=== PATIENT | male | born 1970 | race Caucasian/White ===

== ENCOUNTER 2016-05-21 16:41 | Inpatient (IN) | payer MEDICARE, MEDICAID ==
[~2016-05-21] VITALS: Ht 170.2 cm; Wt 88.1 kg
[~2016-05-21 16:41] MED LIST: OLAN10TA20 PO; OLAN10TA3 PO; VALP5L PO
[2016-05-21] MEDS ORDERED: ZOLPIDEM TARTRATE 10 MG TABLET PO PRN (17:30)
[2016-05-21] MEDS ORDERED: LORazepam 2 MG TABLET PO PRN (17:30)
[2016-05-21 17:38] VITALS: BP 111/65
[2016-05-21 18:30] VITALS: BP 131/50
[2016-05-22 07:46] LABS: BASOPHILS % (AUTO) 0.7 % (0.0-2.0); EOSINOPHILS % (AUTO) 3.7 % (1.0-6.0); HEMATOCRIT 41.3 % (41-53); HEMOGLOBIN 13.8 g/dL (13.5-17.5); LYMPHOCYTES # (AUTO) 2.3 K/uL (1.0-4.8); LYMPHOCYTES % (AUTO) 41.6 % (22.0-44.0); MEAN CORPUSCULAR HEMOGLOBIN 29.6 pg (26.0-34.0); MEAN CORPUSCULAR HGB CONC 33.4 G/dL (31.0-37.0); MEAN CORPUSCULAR VOLUME 89 fL (80-100); MONOCYTES # (AUTO) 0.5 K/uL (0.1-1.0); MONOCYTES % (AUTO) 8.2 % (2.0-9.0); NEUTROPHILS # (AUTO) 2.6 K/uL (1.8-7.7); NEUTROPHILS % (AUTO) 45.8 % (40.0-70.0); PLATELET COUNT (AUTO) 214 K/uL (150-450); RED BLOOD CELL COUNT(AUTO) 4.66 MIL/uL (4.50-5.90); RED CELL DISTRIBUTION WIDTH 12.7 % (11.5-14.5); WHITE BLOOD COUNT (AUTO) 5.6 K/uL (4.5-11.0)
[2016-05-22 08:02] LABS: HEMOGLOBIN A1C 5.1 % (4.5-6.2)
[2016-05-22 08:14] LABS: ALANINE AMINOTRANSFERASE 23 U/L (12-78); ALBUMIN 3.5 g/dL (3.4-5.0); ANION GAP 6 mmol/L (8-16); ASPARTATE AMINOTRANSFERASE 27 U/L (15-37); BILIRUBIN,TOTAL 0.4 mg/dL (0.1-1.0); CALCIUM, TOTAL 8.7 mg/dL (8.8-10.5); CARBON DIOXIDE 27 mmol/L (22-29); CHLORIDE 106 mmol/L (98-107); CREATININE 0.77 mg/dL (0.60-1.30); GLOMERULAR FILTR. RATE CALC > 60 mL/min (>60); POTASSIUM 4.2 mmol/L (3.5-5.1); SODIUM SERUM 139 mmol/L (136-145); THYROID STIMULATING HORMONE 1.17 uIU/mL (0.36-3.74); UREA NITROGEN, BLOOD 20 mg/dL (7-18)
[2016-05-22 08:19] VITALS: BP 118/74
[2016-05-22 16:30] VITALS: BP 108/65
[2016-05-22] MEDS: VALPROIC ACID 250 MG CAPSULE PO SCH (20:52)
[2016-05-22] MEDS: OLANZapine 10 MG TABLET PO SCH (21:11)
[2016-05-23 16:26] VITALS: BP 101/64
[2016-05-23] MEDS: VALPROIC ACID 250 MG CAPSULE PO SCH (20:27)
[2016-05-23] MEDS: OLANZapine 10 MG TABLET PO SCH (20:27)
[2016-05-24 08:05] VITALS: BP 105/57
[2016-05-24 09:24] LABS: APPEARANCE,URINE CLEAR (CLEAR); GLUCOSE, URINE (UA) NEGATIVE (NEGATIVE); KETONES,URINE NEGATIVE (NEGATIVE); LEUKOCYTE ESTERASE ,URINE NEGATIVE (NEGATIVE); OCCULT BLOOD,URINE NEGATIVE (NEGATIVE); PH,URINE 5.5 (5.0-8.0); PROTEIN,URINE NEGATIVE (NEGATIVE)
[2016-05-24 09:36] LABS: ADD UA MICROSCOPIC NO
[2016-05-24] MEDS ORDERED: ACETAMINOPHEN 325 MG TABLET PO PRN (13:30)
[2016-05-24] MEDS ORDERED: GuaiFENesin/D-METHORPHAN [SUGAR-FREE] 200-20MG/10 ML SYRUP UDCUP PO PRN (13:30)
[2016-05-24] MEDS ORDERED: MAGNESIUM HYDROXIDE SUSPENSION 30 ML UDCUP PO PRN (13:30)
[2016-05-24] MEDS ORDERED: HydrOXYzine PAMOATE 50 MG CAPSULE PO PRN (13:30)
[2016-05-24] MEDS ORDERED: LOPERAMIDE HCL 2 MG CAPSULE PO PRN (13:30)
[2016-05-24] MEDS ORDERED: OLANZapine 5 MG RAPDIS TABLET PO PRN (13:30)
[2016-05-24] MEDS ORDERED: MAG HYDROX/AL HYDROX/SIMETH ES 30 ML SUSPENSION UDCUP PO PRN (13:30)
[2016-05-24] MEDS ORDERED: PROMETHAZINE HCL 25 MG TABLET PO PRN (13:30)
[2016-05-24] MEDS: THIAMINE HCL 100 MG TABLET PO SCH (16:22)
[2016-05-24 16:40] VITALS: BP 100/64
[2016-05-24] MEDS: OLANZapine 10 MG TABLET PO SCH (20:12)
[2016-05-24] MEDS: VALPROIC ACID 250 MG CAPSULE PO SCH (20:12)
[2016-05-25 08:00] VITALS: BP 113/60
[2016-05-25] MEDS: THIAMINE HCL 100 MG TABLET PO SCH ×2 (08:33→17:00)
[2016-05-25] MEDS: MULTIVITAMINS WITH MINERALS, THERAPEUTIC TABLET PO SCH (08:33)
[2016-05-25] MEDS: FOLIC ACID 1 MG TABLET PO SCH (08:33)
[2016-05-25] MEDS: NALTREXONE HCL 50 MG TABLET PO SCH (08:33)
[2016-05-25 18:02] VITALS: BP 111/63
[2016-05-25] MEDS: VALPROIC ACID 250 MG CAPSULE PO SCH (21:50)
[2016-05-25] MEDS: OLANZapine 10 MG TABLET PO SCH (21:50)
[2016-05-26 08:05] VITALS: BP 100/70
[2016-05-26] MEDS: MULTIVITAMINS WITH MINERALS, THERAPEUTIC TABLET PO SCH (08:19)
[2016-05-26] MEDS: FOLIC ACID 1 MG TABLET PO SCH (08:20)
[2016-05-26] MEDS: THIAMINE HCL 100 MG TABLET PO SCH (08:20)
[2016-05-26] MEDS: NALTREXONE HCL 50 MG TABLET PO SCH (08:21)
[2016-05-26] MEDS ORDERED: VALP250 PO (10:34)
[2016-05-26] MEDS ORDERED: NALT50 PO (10:34)
[2016-05-26] MEDS ORDERED: OLAN10TA20 PO (10:34)
[2016-05-26] MEDS ORDERED: NALT50TA10 PO (11:07)
== END 2016-05-26 14:10 | disposition home or self-care (01) | DRG 885 ==
LOC: 3EX 17:32 → EDSTATUS 18:04
PROVIDERS: ADMIT Psychiatry & Neurology Child & Adolescent Psychiatry; ATTEND Psychiatry & Neurology Psychiatry
DX: F25.0 Schizoaffective disorder, bipolar type (principal); F17.210 Nicotine dependence, cigarettes, uncomplicated; F19.90 Other psychoactive substance use, unspecified, uncomplicated; E78.5 Hyperlipidemia, unspecified; Z98.890 Other specified postprocedural states; Z71.6 Tobacco abuse counseling; Z65.3 Problems related to other legal circumstances; Z59.9 Problem related to housing and economic circumstances, unspecified; Z79.899 Other long term (current) drug therapy; Z72.89 Other problems related to lifestyle; Z91.19 Patient's noncompliance with other medical treatment and regimen; Z71.89 Other specified counseling; Z71.51 Drug abuse counseling and surveillance of drug abuser; Z81.8 Family history of other mental and behavioral disorders
CPT/HCPCS: 82306; 83036; 84439; 84443; 87081

== ENCOUNTER 2016-10-24 20:41 | Inpatient (IN) | payer MEDICARE, MEDICAID ==
[~2016-10-24] VITALS: Ht 170.2 cm; Wt 99.0 kg
[~2016-10-24 20:41] MED LIST changes: +NALT50TA10 PO; +NALT50TA6 PO; +VALP250 PO; +VALP250S23 PO; -VALP5L PO
[2016-10-24] MEDS ORDERED: ZOLPIDEM TARTRATE 10 MG TABLET PO PRN (21:00)
[2016-10-24] MEDS ORDERED: OLANZapine 5 MG RAPDIS TABLET PO PRN (21:00)
[2016-10-24] MEDS ORDERED: LORazepam 2 MG TABLET PO PRN (21:00)
[2016-10-24] MEDS ORDERED: OLANZapine 10 MG TABLET PO SCH (21:00)
[2016-10-24 21:20] VITALS: BP 114/69
[2016-10-25 04:43] VITALS: BP 12/72
[2016-10-25 08:07] VITALS: BP 129/74
[2016-10-25] MEDS: NALTREXONE HCL 50 MG TABLET PO SCH (08:25)
[2016-10-25] MEDS: NICOTINE 14 MG/24 HOUR PATCH TD SCH (08:26)
[2016-10-25 09:29] LABS: BASOPHILS % (AUTO) 0.5 % (0.0-2.0); EOSINOPHILS % (AUTO) 3.1 % (1.0-6.0); HEMATOCRIT 39.4 % (41-53); HEMOGLOBIN 13.9 g/dL (13.5-17.5); LYMPHOCYTES # (AUTO) 1.6 K/uL (1.0-4.8); LYMPHOCYTES % (AUTO) 31.5 % (22.0-44.0); MEAN CORPUSCULAR HEMOGLOBIN 30.1 pg (26.0-34.0); MEAN CORPUSCULAR HGB CONC 35.3 G/dL (31.0-37.0); MEAN CORPUSCULAR VOLUME 85 fL (80-100); MONOCYTES # (AUTO) 0.4 K/uL (0.1-1.0); NEUTROPHILS # (AUTO) 2.8 K/uL (1.8-7.7); NEUTROPHILS % (AUTO) 55.9 % (40.0-70.0); PLATELET COUNT (AUTO) 224 K/uL (150-450); RED BLOOD CELL COUNT(AUTO) 4.62 MIL/uL (4.50-5.90)
[2016-10-25 09:56] LABS: ALANINE AMINOTRANSFERASE 34 U/L (12-78); ALBUMIN 3.5 g/dL (3.4-5.0); ANION GAP 8 mmol/L (8-16); ASPARTATE AMINOTRANSFERASE 24 U/L (15-37); BILIRUBIN,TOTAL 0.4 mg/dL (0.1-1.0); CALCIUM, TOTAL 8.9 mg/dL (8.8-10.5); CARBON DIOXIDE 23 mmol/L (22-29); CHLORIDE 108 mmol/L (98-107); CHOL/HDL RATIO 5.4 (4.2-7.3); GLOMERULAR FILTR. RATE CALC > 60 mL/min (>60); POTASSIUM 4.2 mmol/L (3.5-5.1); SODIUM SERUM 139 mmol/L (136-145); THYROID STIMULATING HORMONE 1.67 uIU/mL (0.36-3.74); TOTAL PROTEIN, SERUM 7.2 g/dL (6.4-8.2); UREA NITROGEN, BLOOD 18 mg/dL (7-18)
[2016-10-25 10:22] LABS: GLUCOSE, URINE (UA) NEGATIVE (NEGATIVE); KETONES,URINE NEGATIVE (NEGATIVE); LEUKOCYTE ESTERASE ,URINE NEGATIVE (NEGATIVE); OCCULT BLOOD,URINE NEGATIVE (NEGATIVE); PH,URINE 5.5 (5.0-8.0); PROTEIN,URINE NEGATIVE (NEGATIVE)
[2016-10-25 10:26] LABS: ADD UA MICROSCOPIC NO; APPEARANCE,URINE CLEAR (CLEAR)
[2016-10-25 10:43] LABS: HEMOGLOBIN A1C 5.2 % (4.5-6.2)
[2016-10-25] MEDS ORDERED: HydrOXYzine PAMOATE 50 MG CAPSULE PO PRN (12:45)
[2016-10-25] MEDS ORDERED: PALIPERIDONE PALMITATE 234 MG/1.5 ML SYRINGE IM ONE (12:45)
[2016-10-25] MEDS ORDERED: MAGNESIUM HYDROXIDE SUSPENSION 30 ML UDCUP PO PRN (12:45)
[2016-10-25] MEDS ORDERED: PALIPERIDONE 3 MG ER TABLET PO PRN (12:45)
[2016-10-25] MEDS ORDERED: ACETAMINOPHEN 325 MG TABLET PO PRN (12:45)
[2016-10-25] MEDS ORDERED: PROMETHAZINE HCL 25 MG TABLET PO PRN (12:45)
[2016-10-25] MEDS ORDERED: MAG HYDROX/AL HYDROX/SIMETH ES 30 ML SUSPENSION UDCUP PO PRN (12:45)
[2016-10-25] MEDS ORDERED: GuaiFENesin/D-METHORPHAN [SUGAR-FREE] 200-20MG/10 ML SYRUP UDCUP PO PRN (12:45)
[2016-10-25] MEDS ORDERED: LOPERAMIDE HCL 2 MG CAPSULE PO PRN (12:45)
[2016-10-25 16:13] VITALS: BP 113/63
[2016-10-25] MEDS: THIAMINE HCL 100 MG TABLET PO SCH (16:34)
[2016-10-25] MEDS: PALIPERIDONE 6 MG ER TABLET PO SCH (20:31)
[2016-10-26 00:51] VITALS: BP 104/60
[2016-10-26 08:31] VITALS: BP 112/72
[2016-10-26] MEDS: FOLIC ACID 1 MG TABLET PO SCH (09:22)
[2016-10-26] MEDS: THIAMINE HCL 100 MG TABLET PO SCH ×2 (09:22→16:41)
[2016-10-26] MEDS: NALTREXONE HCL 50 MG TABLET PO SCH (09:22)
[2016-10-26] MEDS: MULTIVITAMINS WITH MINERALS, THERAPEUTIC TABLET PO SCH (09:22)
[2016-10-26] MEDS: NICOTINE 14 MG/24 HOUR PATCH TD SCH (09:26)
[2016-10-26 16:16] VITALS: BP 105/66
[2016-10-26] MEDS: PALIPERIDONE 6 MG ER TABLET PO SCH (20:36)
[2016-10-27 08:28] VITALS: BP 103/63
[2016-10-27] MEDS: THIAMINE HCL 100 MG TABLET PO SCH ×2 (08:57→16:58)
[2016-10-27] MEDS: NICOTINE 14 MG/24 HOUR PATCH TD SCH (08:57)
[2016-10-27] MEDS: MULTIVITAMINS WITH MINERALS, THERAPEUTIC TABLET PO SCH (08:57)
[2016-10-27] MEDS: NALTREXONE HCL 50 MG TABLET PO SCH (08:57)
[2016-10-27] MEDS: FOLIC ACID 1 MG TABLET PO SCH (08:57)
[2016-10-27] MEDS ORDERED: NALT50TA PO (14:55)
[2016-10-27] MEDS ORDERED: PALI234D IM (14:56)
[2016-10-27 16:06] VITALS: BP 119/72
[2016-10-27] MEDS: PALIPERIDONE 6 MG ER TABLET PO SCH (20:46)
[2016-10-28] MEDS: FOLIC ACID 1 MG TABLET PO SCH (08:09)
[2016-10-28] MEDS: NALTREXONE HCL 50 MG TABLET PO SCH (08:09)
[2016-10-28] MEDS: MULTIVITAMINS WITH MINERALS, THERAPEUTIC TABLET PO SCH (08:09)
[2016-10-28] MEDS: THIAMINE HCL 100 MG TABLET PO SCH (08:09)
[2016-10-28] MEDS: NICOTINE 14 MG/24 HOUR PATCH TD SCH (08:10)
[2016-10-28 08:25] VITALS: BP 99/72
[2016-10-28] MEDS ORDERED: PALI6 PO (09:10)
[2016-10-29] MEDS ORDERED: PALIPERIDONE PALMITATE 156 MG/ML SYRINGE IM ONE (09:00)
== END 2016-10-28 10:05 | disposition home or self-care (01) | DRG 885 ==
LOC: B2X 21:00 → EDSTATUS 21:14
PROVIDERS: ADMIT Psychiatry & Neurology Psychiatry; ATTEND Psychiatry & Neurology Psychiatry
DX: F25.9 Schizoaffective disorder, unspecified (principal); R45.851 Suicidal ideations; Z91.19 Patient's noncompliance with other medical treatment and regimen; F17.200 Nicotine dependence, unspecified, uncomplicated; F15.90 Other stimulant use, unspecified, uncomplicated; Z91.018 Allergy to other foods
CPT/HCPCS: 80307; 83036; 84439; 84443

== ENCOUNTER 2017-01-02 10:10 | Inpatient (IN) | payer MEDICARE, MEDICAID ==
[~2017-01-02] VITALS: Ht 170.2 cm; Wt 104.2 kg
[~2017-01-02 10:10] MED LIST changes: +NALT50TA PO; -NALT50TA10 PO; -NALT50TA6 PO; -OLAN10TA20 PO; -OLAN10TA3 PO; +PALI234D IM; +PALI6 PO; -VALP250 PO; -VALP250S23 PO
[2017-01-02 11:00] VITALS: BP 120/70
[2017-01-02] MEDS ORDERED: ZOLPIDEM TARTRATE 10 MG TABLET PO PRN (11:00)
[2017-01-02] MEDS ORDERED: QUEtiapine FUMARATE 100 MG TABLET PO PRN (11:00)
[2017-01-02] MEDS ORDERED: LORazepam 2 MG TABLET PO PRN (11:00)
[2017-01-02] MEDS ORDERED: PROP10TA73 PO (11:59)
[2017-01-02] MEDS ORDERED: PROMETHAZINE HCL 25 MG TABLET PO PRN (13:30)
[2017-01-02] MEDS ORDERED: GuaiFENesin/D-METHORPHAN [SUGAR-FREE] 200-20MG/10 ML SYRUP UDCUP PO PRN ×2 (13:30→13:45)
[2017-01-02] MEDS ORDERED: MAG HYDROX/AL HYDROX/SIMETH ES 30 ML SUSPENSION UDCUP PO PRN (13:30)
[2017-01-02] MEDS ORDERED: LOPERAMIDE HCL 2 MG CAPSULE PO PRN (13:30)
[2017-01-02] MEDS ORDERED: MAGNESIUM HYDROXIDE SUSPENSION 30 ML UDCUP PO PRN (13:30)
[2017-01-02] MEDS ORDERED: HydrOXYzine PAMOATE 50 MG CAPSULE PO PRN ×2 (13:30→13:45)
[2017-01-02 14:10] VITALS: BP 114/74
[2017-01-02] MEDS: PROPRANOLOL HCL 10 MG TABLET PO SCH ×2 (14:11→17:15)
[2017-01-02] MEDS ORDERED: PALIPERIDONE PALMITATE 234 MG/1.5 ML SYRINGE IM ONE (15:00)
[2017-01-02 16:05] VITALS: BP 106/66
[2017-01-02] MEDS: ACETAMINOPHEN 325 MG TABLET PO PRN (16:08)
[2017-01-02] MEDS ORDERED: THIAMINE HCL 100 MG TABLET PO SCH (17:00)
[2017-01-02 17:10] VITALS: BP 126/72
[2017-01-02] MEDS: THIAMINE HCL 100 MG TABLET PO SCH (17:15)
[2017-01-02] MEDS ORDERED: INFLUENZA VIRUS VACCINE QVS 2017-18 (3YR+)/PF 60 MCG/0.5 ML SYRINGE IM ONE (19:45)
[2017-01-02] MEDS: PALIPERIDONE 6 MG ER TABLET PO SCH (20:08)
[2017-01-03 08:26] VITALS: BP 117/60
[2017-01-03] MEDS: MULTIVITAMINS WITH MINERALS, THERAPEUTIC TABLET PO SCH (08:36)
[2017-01-03] MEDS: FOLIC ACID 1 MG TABLET PO SCH (08:36)
[2017-01-03] MEDS: PROPRANOLOL HCL 10 MG TABLET PO SCH ×3 (08:36→16:32)
[2017-01-03] MEDS: NALTREXONE HCL 50 MG TABLET PO SCH (08:36)
[2017-01-03] MEDS: THIAMINE HCL 100 MG TABLET PO SCH ×2 (08:36→16:33)
[2017-01-03] MEDS ORDERED: FOLIC ACID 1 MG TABLET PO SCH (09:00)
[2017-01-03] MEDS ORDERED: MULTIVITAMINS WITH MINERALS, THERAPEUTIC TABLET PO SCH (09:00)
[2017-01-03 13:00] VITALS: BP 123/64
[2017-01-03] MEDS: ACETAMINOPHEN 325 MG TABLET PO PRN ×2 (13:03→20:28)
[2017-01-03 16:04] VITALS: BP 123/84
[2017-01-03] MEDS: PALIPERIDONE 6 MG ER TABLET PO SCH (20:35)
[2017-01-04 08:17] LABS: BASOPHILS % (AUTO) 0.5 % (0.0-2.0); EOSINOPHILS % (AUTO) 3.3 % (1.0-6.0); HEMATOCRIT 37.7 % (41-53); HEMOGLOBIN 13.2 g/dL (13.5-17.5); LYMPHOCYTES # (AUTO) 2.1 K/uL (1.0-4.8); MEAN CORPUSCULAR HEMOGLOBIN 30.5 pg (26.0-34.0); MEAN CORPUSCULAR HGB CONC 34.9 G/dL (31.0-37.0); MEAN CORPUSCULAR VOLUME 87 fL (80-100); MONOCYTES # (AUTO) 0.6 K/uL (0.1-1.0); MONOCYTES % (AUTO) 10.5 % (2.0-9.0); NEUTROPHILS # (AUTO) 2.5 K/uL (1.8-7.7); NEUTROPHILS % (AUTO) 45.7 % (40.0-70.0); PLATELET COUNT (AUTO) 223 K/uL (150-450); RED BLOOD CELL COUNT(AUTO) 4.31 MIL/uL (4.50-5.90); RED CELL DISTRIBUTION WIDTH 12.6 % (11.5-14.5); WHITE BLOOD COUNT (AUTO) 5.4 K/uL (4.5-11.0)
[2017-01-04] MEDS: FOLIC ACID 1 MG TABLET PO SCH (08:37)
[2017-01-04 08:38] VITALS: BP 119/64
[2017-01-04] MEDS: NALTREXONE HCL 50 MG TABLET PO SCH (08:38)
[2017-01-04] MEDS: MULTIVITAMINS WITH MINERALS, THERAPEUTIC TABLET PO SCH (08:38)
[2017-01-04] MEDS: PROPRANOLOL HCL 10 MG TABLET PO SCH ×3 (08:38→16:06)
[2017-01-04] MEDS: THIAMINE HCL 100 MG TABLET PO SCH ×2 (08:38→16:06)
[2017-01-04 09:15] LABS: ALANINE AMINOTRANSFERASE 36 U/L (12-78); ALBUMIN 3.2 g/dL (3.4-5.0); ANION GAP 8 mmol/L (8-16); ASPARTATE AMINOTRANSFERASE 17 U/L (15-37); BILIRUBIN,TOTAL 0.4 mg/dL (0.1-1.0); CALCIUM, TOTAL 8.5 mg/dL (8.8-10.5); CARBON DIOXIDE 25 mmol/L (22-29); CHLORIDE 107 mmol/L (98-107); CHOL/HDL RATIO 5.1 (4.2-7.3); CREATININE 0.83 mg/dL (0.60-1.30); GLOMERULAR FILTR. RATE CALC > 60 mL/min (>60); POTASSIUM 4.1 mmol/L (3.5-5.1); SODIUM SERUM 140 mmol/L (136-145); THYROID STIMULATING HORMONE 0.83 uIU/mL (0.36-3.74); TOTAL PROTEIN, SERUM 6.6 g/dL (6.4-8.2); UREA NITROGEN, BLOOD 24 mg/dL (7-18)
[2017-01-04 16:07] VITALS: BP 108/74
[2017-01-04] MEDS: ACETAMINOPHEN 325 MG TABLET PO PRN (16:07)
[2017-01-04] MEDS: PALIPERIDONE 6 MG ER TABLET PO SCH (20:11)
[2017-01-05 08:34] VITALS: BP 122/74
[2017-01-05] MEDS: PROPRANOLOL HCL 10 MG TABLET PO SCH ×3 (08:37→16:34)
[2017-01-05] MEDS: NALTREXONE HCL 50 MG TABLET PO SCH (08:37)
[2017-01-05] MEDS: MULTIVITAMINS WITH MINERALS, THERAPEUTIC TABLET PO SCH (08:37)
[2017-01-05] MEDS: FOLIC ACID 1 MG TABLET PO SCH (08:37)
[2017-01-05] MEDS: CHOLECALCIFEROL (VIT D3) 1,000 UNITS TABLET PO SCH (08:37)
[2017-01-05] MEDS: THIAMINE HCL 100 MG TABLET PO SCH ×2 (08:37→16:34)
[2017-01-05] MEDS: IBUPROFEN 600 MG TABLET PO PRN ×2 (08:46→16:11)
[2017-01-05 12:45] VITALS: BP 123/71
[2017-01-05 16:01] VITALS: BP 128/83
[2017-01-05 16:11] VITALS: BP 128/83
[2017-01-05] MEDS: PALIPERIDONE 6 MG ER TABLET PO SCH (20:36)
[2017-01-06 07:06] VITALS: BP 118/68
[2017-01-06] MEDS: MULTIVITAMINS WITH MINERALS, THERAPEUTIC TABLET PO SCH (08:23)
[2017-01-06] MEDS: NALTREXONE HCL 50 MG TABLET PO SCH (08:23)
[2017-01-06] MEDS: PROPRANOLOL HCL 10 MG TABLET PO SCH ×3 (08:23→17:03)
[2017-01-06] MEDS: CHOLECALCIFEROL (VIT D3) 1,000 UNITS TABLET PO SCH (08:23)
[2017-01-06] MEDS: FOLIC ACID 1 MG TABLET PO SCH (08:23)
[2017-01-06] MEDS: THIAMINE HCL 100 MG TABLET PO SCH ×2 (08:23→17:03)
[2017-01-06 08:26] VITALS: BP 111/60
[2017-01-06] MEDS: IBUPROFEN 600 MG TABLET PO PRN ×2 (08:35→19:48)
[2017-01-06 13:00] VITALS: BP 112/74
[2017-01-06 16:15] VITALS: BP 109/71
[2017-01-06 17:02] VITALS: BP 118/72
[2017-01-06 19:44] VITALS: BP 112/67
[2017-01-06] MEDS: PALIPERIDONE 6 MG ER TABLET PO SCH (20:32)
[2017-01-07 00:13] VITALS: BP 104/64
[2017-01-07 08:55] VITALS: BP 120/63
[2017-01-07] MEDS: MULTIVITAMINS WITH MINERALS, THERAPEUTIC TABLET PO SCH (08:57)
[2017-01-07] MEDS: PROPRANOLOL HCL 10 MG TABLET PO SCH ×3 (08:57→16:23)
[2017-01-07] MEDS: CHOLECALCIFEROL (VIT D3) 1,000 UNITS TABLET PO SCH (08:58)
[2017-01-07] MEDS: THIAMINE HCL 100 MG TABLET PO SCH ×2 (08:58→16:23)
[2017-01-07] MEDS: FOLIC ACID 1 MG TABLET PO SCH (08:58)
[2017-01-07] MEDS: NALTREXONE HCL 50 MG TABLET PO SCH (08:58)
[2017-01-07 11:45] VITALS: BP 118/76
[2017-01-07] MEDS: IBUPROFEN 600 MG TABLET PO PRN ×2 (11:45→17:55)
[2017-01-07 12:55] VITALS: BP 110/72
[2017-01-07 16:06] VITALS: BP 116/69
[2017-01-07 17:55] VITALS: BP 117/84
[2017-01-07] MEDS: PALIPERIDONE 6 MG ER TABLET PO SCH (20:31)
[2017-01-08 00:49] VITALS: BP 111/79
[2017-01-08 08:31] VITALS: BP 101/62
[2017-01-08] MEDS: MULTIVITAMINS WITH MINERALS, THERAPEUTIC TABLET PO SCH (09:04)
[2017-01-08 09:05] VITALS: BP 122/74
[2017-01-08] MEDS: PROPRANOLOL HCL 10 MG TABLET PO SCH ×3 (09:05→16:43)
[2017-01-08] MEDS: NALTREXONE HCL 50 MG TABLET PO SCH (09:05)
[2017-01-08] MEDS: THIAMINE HCL 100 MG TABLET PO SCH ×2 (09:05→16:43)
[2017-01-08] MEDS: CHOLECALCIFEROL (VIT D3) 1,000 UNITS TABLET PO SCH (09:05)
[2017-01-08] MEDS: FOLIC ACID 1 MG TABLET PO SCH (09:05)
[2017-01-08 16:12] VITALS: BP 130/76
[2017-01-08] MEDS: IBUPROFEN 600 MG TABLET PO PRN (16:45)
[2017-01-09 02:14] VITALS: BP 109/73
[2017-01-09] MEDS ORDERED: CHOL200078 PO (08:06)
[2017-01-09] MEDS: PROPRANOLOL HCL 10 MG TABLET PO SCH (08:17)
[2017-01-09] MEDS: FOLIC ACID 1 MG TABLET PO SCH (08:17)
[2017-01-09] MEDS: CHOLECALCIFEROL (VIT D3) 1,000 UNITS TABLET PO SCH (08:17)
[2017-01-09] MEDS: THIAMINE HCL 100 MG TABLET PO SCH (08:17)
[2017-01-09] MEDS: MULTIVITAMINS WITH MINERALS, THERAPEUTIC TABLET PO SCH (08:17)
[2017-01-09] MEDS: NALTREXONE HCL 50 MG TABLET PO SCH (08:17)
[2017-01-09 08:39] VITALS: BP 123/63
[2017-01-09] MEDS ORDERED: PALIPERIDONE PALMITATE 234 MG/1.5 ML SYRINGE IM SCH (09:00)
[2017-01-10] MEDS ORDERED: PALIPERIDONE PALMITATE 234 MG/1.5 ML SYRINGE IM SCH (09:00)
== END 2017-01-09 09:15 | disposition home or self-care (01) | DRG 885 ==
LOC: EDSTATUS 10:21 → B2X 11:41
PROVIDERS: ADMIT Psychiatry & Neurology Psychiatry; ATTEND Psychiatry & Neurology Psychiatry
DX: F25.9 Schizoaffective disorder, unspecified (principal); B15.9 Hepatitis A without hepatic coma; R45.851 Suicidal ideations; Z91.19 Patient's noncompliance with other medical treatment and regimen; F17.210 Nicotine dependence, cigarettes, uncomplicated; D64.9 Anemia, unspecified; F19.10 Other psychoactive substance abuse, uncomplicated; Z28.21 Immunization not carried out because of patient refusal
CPT/HCPCS: 84439; 84443; 90471

== ENCOUNTER 2017-01-02 11:45 | Emergency (ER) | payer MEDICARE, OTHER ==
[~2017-01-02] VITALS: Ht 170.2 cm; Wt 95.5 kg
[2017-01-02] MEDS ORDERED: PROP10TA73 PO (11:59)
[2017-01-02] MEDS ORDERED: IBUPROFEN 600 MG TABLET PO ONE (12:15)
[2017-01-02 13:13] VITALS: BP 126/74
== END 2017-01-02 13:42 | disposition other institution (70) ==
LOC: EMS 11:49
DX: S29.9XXA Unspecified injury of thorax, initial encounter (principal); F20.0 Paranoid schizophrenia; F17.210 Nicotine dependence, cigarettes, uncomplicated; Z91.018 Allergy to other foods; X58.XXXA Exposure to other specified factors, initial encounter; Y93.89 Activity, other specified; Y92.89 Other specified places as the place of occurrence of the external cause; Y99.8 Other external cause status
CPT/HCPCS: 93005; 99285

== ENCOUNTER 2017-07-04 10:17 | Emergency (ER) | payer MEDICARE, OTHER ==
[~2017-07-04] VITALS: Ht 170.2 cm; Wt 113.6 kg
[~2017-07-04 10:17] MED LIST changes: +CHOL200078 PO; -NALT50TA PO; -PALI234D IM; -PALI6 PO; +PROP10TA73 PO
[2017-07-04] MEDS ORDERED: PROPARACAINE/FLUORESCEIN SOD 0.5-0.25% 0.5 ML OPHTHALMIC SOLUTION OD ONE (11:15)
[2017-07-04 12:52] VITALS: BP 136/99
== END 2017-07-04 12:56 | disposition home or self-care (01) ==
LOC: EMS 10:18
DX: S01.111A Laceration without foreign body of right eyelid and periocular area, initial encounter (principal); F17.210 Nicotine dependence, cigarettes, uncomplicated; W01.198A Fall on same level from slipping, tripping and stumbling with subsequent striking against other object, initial encounter; Y93.89 Activity, other specified; Y92.89 Other specified places as the place of occurrence of the external cause; Y99.8 Other external cause status
CPT/HCPCS: 99283

== ENCOUNTER 2018-07-16 12:00 | Inpatient (IN) | payer MEDICARE, MEDICAID ==
[~2018-07-16] VITALS: Ht 170.2 cm; Wt 111.0 kg
[2018-07-16 13:45] VITALS: BP 127/78
[2018-07-16] MEDS ORDERED: GuaiFENesin/D-METHORPHAN [SUGAR-FREE] 200-20MG/10 ML SYRUP UDCUP PO PRN (14:00)
[2018-07-16] MEDS ORDERED: MAG HYDROX/AL HYDROX/SIMETH ES 30 ML SUSPENSION UDCUP PO PRN (14:00)
[2018-07-16] MEDS ORDERED: PROMETHAZINE HCL 25 MG TABLET PO PRN (14:00)
[2018-07-16] MEDS ORDERED: ACETAMINOPHEN 325 MG TABLET PO PRN (14:00)
[2018-07-16] MEDS ORDERED: TUBERCULIN, PURIFIED PROTEIN DERIVATIVE 5 TU/0.1 ML SYRINGE ID ONE (14:00)
[2018-07-16] MEDS ORDERED: LOPERAMIDE HCL 2 MG CAPSULE PO PRN (14:00)
[2018-07-16] MEDS ORDERED: HydrOXYzine PAMOATE 50 MG CAPSULE PO PRN (14:00)
[2018-07-16] MEDS ORDERED: MAGNESIUM HYDROXIDE SUSPENSION 30 ML UDCUP PO PRN (14:00)
[2018-07-16] MEDS ORDERED: PALI234D IM (15:22)
[2018-07-16 16:26] VITALS: BP 138/86
[2018-07-16] MEDS: PALIPERIDONE 1.5 MG ER TABLET PO PRN (16:40)
[2018-07-16] MEDS: THIAMINE HCL 100 MG TABLET PO SCH (16:40)
[2018-07-16] MEDS ORDERED: PALIPERIDONE PALMITATE 234 MG/1.5 ML SYRINGE IM ONE (16:45)
[2018-07-16] MEDS ORDERED: PALIPERIDONE 3 MG ER TABLET PO SCH (21:00)
[2018-07-17 06:25] VITALS: BP 115/76
[2018-07-17 08:12] LABS: BASOPHILS % (AUTO) 0.7 % (0.0-2.0); EOSINOPHILS % (AUTO) 2.3 % (1.0-6.0); HEMATOCRIT 42.7 % (41-53); HEMOGLOBIN 14.7 g/dL (13.5-17.5); LYMPHOCYTES # (AUTO) 2.4 K/uL (1.0-4.8); LYMPHOCYTES % (AUTO) 34.3 % (22.0-44.0); MEAN CORPUSCULAR HEMOGLOBIN 28.8 pg (26.0-34.0); MEAN CORPUSCULAR HGB CONC 34.3 G/dL (31.0-37.0); MEAN CORPUSCULAR VOLUME 84 fL (80-100); MONOCYTES # (AUTO) 0.7 K/uL (0.1-1.0); MONOCYTES % (AUTO) 10.1 % (2.0-9.0); NEUTROPHILS # (AUTO) 3.7 K/uL (1.8-7.7); NEUTROPHILS % (AUTO) 52.6 % (40.0-70.0); PLATELET COUNT (AUTO) 249 K/uL (150-450); RED BLOOD CELL COUNT(AUTO) 5.09 MIL/uL (4.50-5.90); RED CELL DISTRIBUTION WIDTH 13.8 % (11.5-14.5)
[2018-07-17 08:50] LABS: ALANINE AMINOTRANSFERASE 46 U/L (12-78); ALBUMIN 3.4 g/dL (3.4-5.0); ALKALINE PHOSPHATASE 76 U/L (46-116); ANION GAP 8 mmol/L (8-16); ASPARTATE AMINOTRANSFERASE 27 U/L (15-37); BILIRUBIN,TOTAL 0.4 mg/dL (0.1-1.0); CALCIUM, TOTAL 9.1 mg/dL (8.8-10.5); CARBON DIOXIDE 27 mmol/L (22-29); CHLORIDE 107 mmol/L (98-107); CHOL/HDL RATIO 5.5 (4.2-7.3); CHOLESTEROL 186 mg/dL (131-200); CREATININE 0.89 mg/dL (0.60-1.30); FREE T4 (FREE THYROXINE) 1.06 ng/dL (0.76-1.46); GLOMERULAR FILTR. RATE CALC > 60 mL/min (>60); GLUCOSE,RANDOM 92 mg/dL (70-110); HDL CHOLESTEROL 34 mg/dL (40-60); LDL CHOL (CALC.) 123 mg/dL (0-130); POTASSIUM 4.2 mmol/L (3.5-5.1); SODIUM SERUM 142 mmol/L (136-145); THYROID STIMULATING HORMONE 1.57 uIU/mL (0.36-3.74); TOTAL PROTEIN, SERUM 7.2 g/dL (6.4-8.2); TRIGLYCERIDES 147 mg/dL (15-150); UREA NITROGEN, BLOOD 16 mg/dL (7-18)
[2018-07-17 08:52] LABS: HEMOGLOBIN A1C 5.5 % (4.5-6.2)
[2018-07-17] MEDS: MULTIVITAMINS WITH MINERALS, THERAPEUTIC TABLET PO SCH (08:52)
[2018-07-17] MEDS: THIAMINE HCL 100 MG TABLET PO SCH ×2 (08:52→16:53)
[2018-07-17] MEDS: FOLIC ACID 1 MG TABLET PO SCH (08:52)
[2018-07-17 16:00] VITALS: BP 115/70
[2018-07-18 06:33] VITALS: BP 105/68
[2018-07-18] MEDS: FOLIC ACID 1 MG TABLET PO SCH (08:23)
[2018-07-18] MEDS: MULTIVITAMINS WITH MINERALS, THERAPEUTIC TABLET PO SCH (08:23)
[2018-07-18] MEDS: THIAMINE HCL 100 MG TABLET PO SCH ×2 (08:23→16:36)
[2018-07-18 08:29] VITALS: BP 105/69
[2018-07-18 16:01] VITALS: BP 138/83
[2018-07-18] MEDS: ZOLPIDEM TARTRATE 10 MG TABLET PO PRN (21:01)
[2018-07-19 06:08] VITALS: BP 101/61
[2018-07-19] MEDS: MULTIVITAMINS WITH MINERALS, THERAPEUTIC TABLET PO SCH (08:48)
[2018-07-19] MEDS: FOLIC ACID 1 MG TABLET PO SCH (08:48)
[2018-07-19] MEDS: THIAMINE HCL 100 MG TABLET PO SCH ×2 (08:48→16:07)
[2018-07-19] MEDS: LORazepam 2 MG TABLET PO PRN (16:07)
[2018-07-19 16:16] VITALS: BP 115/84
[2018-07-19] MEDS: ZOLPIDEM TARTRATE 10 MG TABLET PO PRN (20:14)
[2018-07-20 05:05] VITALS: BP 107/80
[2018-07-20 08:02] VITALS: BP 106/57
[2018-07-20] MEDS ORDERED: PALIPERIDONE PALMITATE 156 MG/ML SYRINGE IM ONE (09:00)
[2018-07-20] MEDS ORDERED: BISACODYL 5 MG EC TABLET PO PRN (09:30)
[2018-07-20] MEDS: THIAMINE HCL 100 MG TABLET PO SCH ×2 (09:41→16:41)
[2018-07-20] MEDS: FOLIC ACID 1 MG TABLET PO SCH (09:41)
[2018-07-20] MEDS: MULTIVITAMINS WITH MINERALS, THERAPEUTIC TABLET PO SCH (09:41)
[2018-07-20 16:07] VITALS: BP 114/72
[2018-07-20] MEDS: PALIPERIDONE 1.5 MG ER TABLET PO PRN (16:41)
[2018-07-20] MEDS: LORazepam 2 MG TABLET PO PRN (16:41)
[2018-07-20] MEDS: ZOLPIDEM TARTRATE 10 MG TABLET PO PRN (20:36)
[2018-07-21 06:42] VITALS: BP 110/72
[2018-07-21 08:12] VITALS: BP 105/68
[2018-07-21] MEDS: MULTIVITAMINS WITH MINERALS, THERAPEUTIC TABLET PO SCH (08:46)
[2018-07-21] MEDS: THIAMINE HCL 100 MG TABLET PO SCH ×2 (08:46→16:53)
[2018-07-21] MEDS: FOLIC ACID 1 MG TABLET PO SCH (08:47)
[2018-07-21] MEDS: LORazepam 2 MG TABLET PO PRN (16:53)
[2018-07-21] MEDS: ZOLPIDEM TARTRATE 10 MG TABLET PO PRN (20:23)
[2018-07-22 00:22] VITALS: BP 135/86
[2018-07-22] MEDS: LORazepam 2 MG TABLET PO PRN ×3 (00:26→20:39)
[2018-07-22 08:00] VITALS: BP 122/84
[2018-07-22] MEDS: THIAMINE HCL 100 MG TABLET PO SCH ×2 (08:38→16:24)
[2018-07-22] MEDS: FOLIC ACID 1 MG TABLET PO SCH (08:38)
[2018-07-22] MEDS: MULTIVITAMINS WITH MINERALS, THERAPEUTIC TABLET PO SCH (08:38)
[2018-07-22 17:39] VITALS: BP 121/60
[2018-07-22] MEDS: ZOLPIDEM TARTRATE 10 MG TABLET PO PRN (20:39)
[2018-07-23 06:10] VITALS: BP 122/78
[2018-07-23] MEDS: FOLIC ACID 1 MG TABLET PO SCH (08:34)
[2018-07-23] MEDS: THIAMINE HCL 100 MG TABLET PO SCH ×2 (08:34→16:50)
[2018-07-23] MEDS: MULTIVITAMINS WITH MINERALS, THERAPEUTIC TABLET PO SCH (08:35)
[2018-07-23] MEDS: LORazepam 2 MG TABLET PO PRN ×2 (08:35→16:50)
[2018-07-23 16:08] VITALS: BP 140/91
[2018-07-23] MEDS: PALIPERIDONE 1.5 MG ER TABLET PO PRN (16:50)
[2018-07-23] MEDS ORDERED: CloNIDine HCL 0.1 MG TABLET PO PRN (18:30)
[2018-07-23] MEDS: ZOLPIDEM TARTRATE 10 MG TABLET PO PRN (20:12)
[2018-07-24] MEDS ORDERED: FOLI1TAB15 PO (05:04)
[2018-07-24] MEDS ORDERED: MULT-1203 PO (05:09)
[2018-07-24] MEDS ORDERED: NIAC100T3 PO (05:09)
[2018-07-24 06:12] VITALS: BP 109/88
[2018-07-24] MEDS ORDERED: PALI117D IM (11:35)
[2018-07-24] MEDS ORDERED: NALT50TA PO (11:36)
== END 2018-07-24 07:30 | disposition home or self-care (01) | DRG 885 ==
LOC: B3A 12:00
PROVIDERS: ADMIT Psychiatry & Neurology Psychiatry; ATTEND Psychiatry & Neurology Psychiatry
DX: F20.0 Paranoid schizophrenia (principal); F17.210 Nicotine dependence, cigarettes, uncomplicated; F60.0 Paranoid personality disorder; E78.5 Hyperlipidemia, unspecified; D64.9 Anemia, unspecified; E55.9 Vitamin D deficiency, unspecified; K59.00 Constipation, unspecified; Z65.3 Problems related to other legal circumstances; Z59.9 Problem related to housing and economic circumstances, unspecified; Z91.19 Patient's noncompliance with other medical treatment and regimen
CPT/HCPCS: 80074; 83036; 84439; 84443; 86592

== ENCOUNTER → 2018-10-02 | Outpatient (CLI) | payer MEDICARE, OTHER ==
[~2018-10-02] MED LIST changes: -CHOL200078 PO; +FOLI1TAB15 PO; +MULT-1203 PO; +NALT50TA PO; +NIAC100T3 PO; +PALI117D IM; -PROP10TA73 PO
== END | disposition home or self-care (01) ==
LOC: LABMN 14:22
PROVIDERS: ATTEND Psychiatry & Neurology Psychiatry
DX: F25.0 Schizoaffective disorder, bipolar type (principal)

== ENCOUNTER 2018-11-14 10:12 | Inpatient (IN) | payer MEDICARE, MEDICAID, OTHER ==
[~2018-11-14] VITALS: Ht 170.2 cm; Wt 112.7 kg
[2018-11-14] MEDS ORDERED: QUEtiapine FUMARATE 25 MG TABLET PO PRN (11:00)
[2018-11-14] MEDS ORDERED: LORazepam 2 MG TABLET PO PRN (11:00)
[2018-11-14 11:14] VITALS: BP 114/69
[2018-11-14] MEDS ORDERED: MAG HYDROX/AL HYDROX/SIMETH ES 30 ML SUSPENSION UDCUP PO PRN (14:15)
[2018-11-14] MEDS ORDERED: PROMETHAZINE HCL 25 MG TABLET PO PRN (14:15)
[2018-11-14] MEDS ORDERED: TUBERCULIN, PURIFIED PROTEIN DERIVATIVE 5 TU/0.1 ML SYRINGE ID ONE (14:15)
[2018-11-14] MEDS ORDERED: MAGNESIUM HYDROXIDE SUSPENSION 30 ML UDCUP PO PRN (14:15)
[2018-11-14] MEDS ORDERED: ACETAMINOPHEN 325 MG TABLET PO PRN (14:15)
[2018-11-14] MEDS ORDERED: LOPERAMIDE HCL 2 MG CAPSULE PO PRN ×2 (14:15)
[2018-11-14] MEDS ORDERED: GuaiFENesin/D-METHORPHAN [SUGAR-FREE] 200-20MG/10 ML SYRUP UDCUP PO PRN (14:15)
[2018-11-14] MEDS ORDERED: PALIPERIDONE 3 MG ER TABLET PO PRN (14:15)
[2018-11-14 16:00] VITALS: BP 109/65
[2018-11-14] MEDS: THIAMINE HCL 100 MG TABLET PO SCH (17:08)
[2018-11-14] MEDS: HydrOXYzine PAMOATE 50 MG CAPSULE PO PRN (17:08)
[2018-11-14] MEDS: PALIPERIDONE 3 MG ER TABLET PO SCH (20:15)
[2018-11-14] MEDS: ATORVASTATIN CALCIUM 20 MG TABLET PO SCH (20:15)
[2018-11-14] MEDS: ZOLPIDEM TARTRATE 10 MG TABLET PO PRN (20:15)
[2018-11-15 08:14] LABS: EOSINOPHILS % (AUTO) 3.8 % (1.0-6.0); HEMATOCRIT 40.9 % (41-53); HEMOGLOBIN 14.3 g/dL (13.5-17.5); LYMPHOCYTES # (AUTO) 2.7 K/uL (1.0-4.8); LYMPHOCYTES % (AUTO) 44.8 % (22.0-44.0); MEAN CORPUSCULAR HEMOGLOBIN 29.4 pg (26.0-34.0); MEAN CORPUSCULAR HGB CONC 34.9 G/dL (31.0-37.0); MEAN CORPUSCULAR VOLUME 84 fL (80-100); MONOCYTES # (AUTO) 0.5 K/uL (0.1-1.0); MONOCYTES % (AUTO) 8.2 % (2.0-9.0); NEUTROPHILS # (AUTO) 2.5 K/uL (1.8-7.7); NEUTROPHILS % (AUTO) 42.2 % (40.0-70.0); PLATELET COUNT (AUTO) 252 K/uL (150-450); RED BLOOD CELL COUNT(AUTO) 4.86 MIL/uL (4.50-5.90); RED CELL DISTRIBUTION WIDTH 13.2 % (11.5-14.5)
[2018-11-15] MEDS: MULTIVITAMINS WITH MINERALS, THERAPEUTIC TABLET PO SCH (08:36)
[2018-11-15] MEDS: THIAMINE HCL 100 MG TABLET PO SCH ×2 (08:37→16:04)
[2018-11-15] MEDS: FOLIC ACID 1 MG TABLET PO SCH (08:37)
[2018-11-15 08:53] LABS: ALANINE AMINOTRANSFERASE 44 U/L (12-78); ALBUMIN 3.5 g/dL (3.4-5.0); ALKALINE PHOSPHATASE 72 U/L (46-116); ANION GAP 9 mmol/L (8-16); ASPARTATE AMINOTRANSFERASE 22 U/L (15-37); BILIRUBIN,TOTAL 0.5 mg/dL (0.1-1.0); CALCIUM, TOTAL 9.2 mg/dL (8.8-10.5); CARBON DIOXIDE 25 mmol/L (22-29); CHLORIDE 105 mmol/L (98-107); CHOL/HDL RATIO 4.8 (4.2-7.3); CHOLESTEROL 135 mg/dL (131-200); CREATININE 0.87 mg/dL (0.60-1.30); GLOMERULAR FILTR. RATE CALC > 60 mL/min (>60); GLUCOSE,RANDOM 94 mg/dL (70-110); HDL CHOLESTEROL 28 mg/dL (40-60); LDL CHOL (CALC.) 78 mg/dL (0-130); POTASSIUM 4.1 mmol/L (3.5-5.1); SODIUM SERUM 139 mmol/L (136-145); THYROID STIMULATING HORMONE 1.05 uIU/mL (0.36-3.74); TOTAL PROTEIN, SERUM 7.2 g/dL (6.4-8.2); TRIGLYCERIDES 144 mg/dL (15-150); UREA NITROGEN, BLOOD 15 mg/dL (7-18)
[2018-11-15] MEDS: HydrOXYzine PAMOATE 50 MG CAPSULE PO PRN (15:55)
[2018-11-15] MEDS ORDERED: NALT50TA PO (16:18)
[2018-11-15] MEDS ORDERED: PALI117D IM (16:18)
[2018-11-15 16:36] VITALS: BP 107/73
[2018-11-15] MEDS ORDERED: BISACODYL 5 MG EC TABLET PO PRN (18:15)
[2018-11-15] MEDS: PALIPERIDONE 3 MG ER TABLET PO SCH (20:49)
[2018-11-15] MEDS: ATORVASTATIN CALCIUM 20 MG TABLET PO SCH (20:49)
[2018-11-15] MEDS: ZOLPIDEM TARTRATE 10 MG TABLET PO PRN (20:49)
[2018-11-16] MEDS: THIAMINE HCL 100 MG TABLET PO SCH (08:01)
[2018-11-16] MEDS: MULTIVITAMINS WITH MINERALS, THERAPEUTIC TABLET PO SCH (08:01)
[2018-11-16] MEDS: FOLIC ACID 1 MG TABLET PO SCH (08:01)
[2018-11-16 08:12] VITALS: BP 114/72
[2018-11-16] MEDS ORDERED: PALI156D IM (08:44)
[2018-11-16] MEDS ORDERED: ATOR20TA65 PO (08:52)
[2018-11-16] MEDS ORDERED: NALTREXONE HCL 50 MG TABLET PO SCH (09:00)
[2018-12-12] MEDS ORDERED: PALIPERIDONE PALMITATE 117 MG/0.75 ML SYRINGE IM SCH ×2 (09:00)
== END 2018-11-16 11:42 | disposition home or self-care (01) | DRG 885 ==
LOC: B3A 11:11
PROVIDERS: ADMIT Psychiatry & Neurology Psychiatry; ATTEND Psychiatry & Neurology Psychiatry
DX: F20.0 Paranoid schizophrenia (principal); D64.9 Anemia, unspecified; E55.9 Vitamin D deficiency, unspecified; E66.9 Obesity, unspecified; E78.5 Hyperlipidemia, unspecified; F12.90 Cannabis use, unspecified, uncomplicated; F15.90 Other stimulant use, unspecified, uncomplicated; K59.00 Constipation, unspecified; Z68.38 Body mass index [BMI] 38.0-38.9, adult; Z91.14 Patient's other noncompliance with medication regimen; Z91.19 Patient's noncompliance with other medical treatment and regimen; F17.200 Nicotine dependence, unspecified, uncomplicated
CPT/HCPCS: 83036; 84439; 84443; 86592

== ENCOUNTER → 2021-02-16 | Outpatient (CLI) | payer MEDICARE, OTHER ==
[~2021-02-16] MED LIST changes: +ATOR20TA65 PO; -FOLI1TAB15 PO; +MELA5TAB40 PO; -MULT-1203 PO; -NIAC100T3 PO; +OMEG-135 PO
== END | disposition home or self-care (01) ==
LOC: LABMN 13:12
PROVIDERS: ATTEND Psychiatry & Neurology Psychiatry
DX: F25.0 Schizoaffective disorder, bipolar type (principal)
CPT/HCPCS: 80164

== ENCOUNTER → 2021-05-18 | Outpatient (CLI) | payer MEDICARE, OTHER ==
[~2021-05-18] MED LIST changes: +OMEG-108 PO; -OMEG-135 PO
[2021-05-18 15:42] LABS: AMPHET/METH SCREEN,URINE NEGATIVE (NEGATIVE); BARBITURATE SCREEN, URINE NEGATIVE (NEGATIVE); BENZODIAZEPINES SCREEN,URINE NEGATIVE (NEGATIVE); CANNABINOID SCREEN,URINE NEGATIVE (NEGATIVE); COCAINE SCREEN,URINE NEGATIVE (NEGATIVE); METHADONE SCREEN, URINE NEGATIVE (NEGATIVE); OPIATE SCREEN,URINE NEGATIVE (NEGATIVE); PHENCYCLIDINE SCREEN,URINE NEGATIVE (NEGATIVE)
== END | disposition home or self-care (01) ==
LOC: LABPV 13:42
PROVIDERS: ATTEND Psychiatry & Neurology Psychiatry
DX: F25.0 Schizoaffective disorder, bipolar type (principal); Z79.899 Other long term (current) drug therapy

== ENCOUNTER → 2021-08-25 | Outpatient (CLI) | payer MEDICARE, OTHER | END | disposition home or self-care (01) | LOC: LABPV 13:09 | PROVIDERS: ATTEND Psychiatry & Neurology Psychiatry | DX: F25.9 Schizoaffective disorder, unspecified (principal) | CPT/HCPCS: 80164 ==

== ENCOUNTER → 2022-12-05 | Outpatient (CLI) | payer MEDICARE, OTHER ==
[~2022-12-05] MED LIST changes: -OMEG-108 PO; +OMEG-135 PO
== END | disposition home or self-care (01) ==
LOC: LABMN 12:24
PROVIDERS: ATTEND Psychiatry & Neurology Psychiatry
DX: F25.0 Schizoaffective disorder, bipolar type (principal); Z79.899 Other long term (current) drug therapy
CPT/HCPCS: 80307

== ENCOUNTER → 2022-12-19 | Outpatient (CLI) | payer MEDICARE, OTHER ==
[2022-12-20 09:07] LABS: PH,URINE DRUG SCREEN 5.5 (5.0-8.0)
[2022-12-20 09:12] LABS: ALCOHOL, URINE DRUG SCREEN NEGATIVE (NEGATIVE); AMPHET/METH SCREEN,URINE POSITIVE (NEGATIVE); BARBITURATE SCREEN, URINE NEGATIVE (NEGATIVE); BENZODIAZEPINES SCREEN,URINE NEGATIVE (NEGATIVE); CANNABINOID SCREEN,URINE NEGATIVE (NEGATIVE); COCAINE SCREEN,URINE NEGATIVE (NEGATIVE); METHADONE SCREEN, URINE NEGATIVE (NEGATIVE); OPIATE SCREEN,URINE NEGATIVE (NEGATIVE); PHENCYCLIDINE SCREEN,URINE NEGATIVE (NEGATIVE)
== END | disposition home or self-care (01) ==
LOC: LABMN 11:45
PROVIDERS: ATTEND Psychiatry & Neurology Psychiatry
DX: F25.0 Schizoaffective disorder, bipolar type (principal); R41.82 Altered mental status, unspecified; Z79.899 Other long term (current) drug therapy
CPT/HCPCS: 80307